=== PATIENT | male | born 1960 | race Caucasian/White ===

== ENCOUNTER 2018-06-01 23:41 | Emergency (ER) | payer OTHER ==
[~2018-06-01] VITALS: Ht 185.4 cm; Wt 125.0 kg
[~2018-06-01 23:41] MED LIST: NOCURR
[2018-06-01 23:54] LABS: GLUCOSE,POINT OF CARE 104 MG/DL (70-110)
[2018-06-02 00:17] VITALS: BP 152/85
[2018-06-02] MEDS ORDERED: PERTUSS(ACELL),DIPH,TET VAC/PF 0.5 ML VIAL IM ONE (01:15)
== END 2018-06-02 01:30 | disposition home or self-care (01) ==
LOC: EMS 23:41
DX: S91.331A Puncture wound without foreign body, right foot, initial encounter (principal); F12.90 Cannabis use, unspecified, uncomplicated; W22.8XXA Striking against or struck by other objects, initial encounter; Y93.89 Activity, other specified; Y92.098 Other place in other non-institutional residence as the place of occurrence of the external cause; Y99.8 Other external cause status
CPT/HCPCS: 90471; 90715; 99283

== ENCOUNTER 2019-03-02 10:00 | Emergency (ER) | payer OTHER ==
[~2019-03-02] VITALS: Ht 185.4 cm; Wt 122.7 kg
[2019-03-02] MEDS ORDERED: PERTUSS(ACELL),DIPH,TET VAC/PF 0.5 ML VIAL IM ONE (12:15)
[2019-03-02] MEDS ORDERED: POVIDONE-IODINE 10% 15 ML SOLUTION UD TP ONE (12:30)
[2019-03-02] MEDS ORDERED: LIDOCAINE 1% 10 ML VIAL INJ ONE (12:30)
[2019-03-02] MEDS ORDERED: BACITRACIN 0.9 GM PACKET OINTMENT TP ONE (12:30)
[2019-03-02 13:38] VITALS: BP 136/82
== END 2019-03-02 13:43 | disposition home or self-care (01) ==
LOC: EMS 10:02
DX: S80.851A Superficial foreign body, right lower leg, initial encounter (principal); F12.90 Cannabis use, unspecified, uncomplicated; W45.8XXA Other foreign body or object entering through skin, initial encounter; Y93.89 Activity, other specified; Y92.89 Other specified places as the place of occurrence of the external cause; Y99.8 Other external cause status
CPT/HCPCS: 10120; 73590; 90471; 90715; 99284; J3490

== ENCOUNTER 2019-09-28 11:23 | Emergency (ER) | payer OTHER ==
[~2019-09-28] VITALS: Ht 185.4 cm; Wt 113.6 kg
[2019-09-28] MEDS ORDERED: ALBUTEROL SULFATE HFA 90 MCG/PUFF 8 GM INHALER IH ONE (12:30)
[2019-09-28 12:58] VITALS: BP 115/87
== END 2019-09-28 12:59 | disposition home or self-care (01) ==
LOC: EMS 11:26
DX: J40 Bronchitis, not specified as acute or chronic (principal); F12.90 Cannabis use, unspecified, uncomplicated
CPT/HCPCS: 94640; J3535

== ENCOUNTER 2025-05-28 20:28 | Emergency (ER) | payer MEDICAID, OTHER ==
[~2025-05-28] VITALS: Ht 185.4 cm; Wt 103.6 kg
[2025-05-28 20:40] VITALS: TEMP 97.7
[2025-05-28] MEDS: IBUPROFEN 600 MG TABLET PO ONE (21:26)
[2025-05-28] MEDS: COLCHICINE 0.6 MG TABLET PO ONE (21:26)
[2025-05-28] MEDS: HYDROCODONE/ACETAMINOPHEN 5-325 MG TABLET PO ONE (21:26)
[2025-05-28 21:34] LABS: PLATELET COUNT (AUTO) 176 K/uL (150-450); RED BLOOD CELL COUNT(AUTO) 4.59 MIL/uL (4.50-5.90); RED CELL DISTRIBUTION WIDTH 14.5 % (11.5-14.5); WHITE BLOOD COUNT (AUTO) 9.5 K/uL (4.5-11.0)
[2025-05-28 21:46] LABS: CALCIUM, TOTAL 8.7 mg/dL (8.8-10.5); CREATININE 0.87 mg/dL (0.60-1.30); GLOMERULAR FILTR. RATE CALC > 60 mL/min (>60); GLUCOSE,RANDOM 105 mg/dL (70-110); SODIUM SERUM 135 mmol/L (136-145); UREA NITROGEN, BLOOD 5 mg/dL (7-18)
[2025-05-28] MEDS ORDERED: IBUP-1506 PO (22:51)
[2025-05-28 23:00] VITALS: BP 132/88; PULSE 71; RESP 16; O2SAT 95
== END 2025-05-28 23:05 | disposition home or self-care (01) ==
LOC: EMS 20:30
DX: M10.9 Gout, unspecified (principal); M25.531 Pain in right wrist; M25.521 Pain in right elbow; F12.90 Cannabis use, unspecified, uncomplicated; Z98.890 Other specified postprocedural states; Z90.49 Acquired absence of other specified parts of digestive tract
CPT/HCPCS: 80048; 84550; 85025; 99284